=== PATIENT | male | born 1995 | race Caucasian/White ===

== ENCOUNTER 2019-08-08 16:01 | Day surgery (SDC) | payer OTHER ==
[2019-08-08 16:39] LABS: ABS Eosinophils 0.1 10^3/ul (0-0.6); ABS Monocytes 0.9 10^3/ul (0-0.8); ABS Neutrophils 10.5 10^3/ul (1.5-7.7); Eosinophil % 0.6 %; Hematocrit 46 % (42-52); Hemoglobin 16.1 g/dL (14.0-18.0); Lymphocyte % 8.3 %; Mean Corpuscular HGB Conc 35 g/dL (31-36); Mean Corpuscular Hemoglobin 31 pg (27-31); Mean Corpuscular Volume 90 fL (80-94); Mean Platelet Volume 7.9 fL (7.4-10.4); Nucleated Red Blood Cells % 0.1; Platelet Count 189 10^3/uL (150-450); Red Blood Count 5.15 10^6 /uL (4.18-5.48); Red Cell Distribution Width 13 % (10-15); White Blood Count 12.5 10^3/uL (3.5-10.8)
[2019-08-08 16:59] LABS: Albumin 4.9 g/dL (3.2-5.2); BUN/Creatinine Ratio 11.1 (8-20); C Reactive Protein 29.19 mg/L (<8.01); Calcium 9.5 mg/dL (8.6-10.3); EGFR African American 162.3 (>60); EGFR Non-African American 134.1 (>60); Globulin 2.4 g/dL (2-4); Potassium 3.6 mmol/L (3.5-5.0); Total Protein 7.3 g/dL (6.4-8.9)
[2019-08-08] MEDS ORDERED: NS 0.9% 1000 ML** 1,000 ML IV ONE ×2 (17:18→18:05)
--- NOTE | 2019-08-08 17:28 | ED ---
Abdominal Pain/Male - HPI Summary HPI Summary: 23 year old M presenting to [facility] complains of RLQ pain and nausea that started at 199908/07/2019. Was seen at [facility] and referred to the ED to r/o appendicitis. The patient rates the pain 7/10 in severity. Symptoms aggravated by nothing. Symptoms alleviated by nothing. Medications reviewed. Allergies noted. Patient otherwise healthy. No hx abdominal surgeries. - History of Current Complaint Chief Complaint: EDAbdPain Stated Complaint: ABD PAIN PER PT Time Seen by Provider: 08/08/19 17:18 Hx Obtained From: Patient Onset/Duration: Lasting Hours - 199908/07/2019, Still Present Timing: Constant Severity Currently: Moderate Pain Intensity: 7 Pain Scale Used: 0-10 Numeric Location: Discrete At: RLQ Aggravating Factor(s): Nothing Alleviating Factor(s): Nothing Associated Signs And Symptoms: Positive: Nausea - Allergies/Home Medications Allergies/Adverse Reactions: Allergies Allergy/AdvReac Type Severity Reaction Status Date / Time cefaclor [From Ceclor] Allergy Unknown Verified 08/08/19 16:05 Reaction Details cefprozil [From Cefzil] Allergy Unknown Verified 08/08/19 16:05 Reaction Details Home Medications: Home Medications Finasteride TAB* [Proscar TAB*] 5 mg PO DAILY 08/08/19 [History Confirmed ] Tenofovir/Emtricitab 200/300 * [Truvada 200/300 mg*] 1 tab PO DAILY 08/08/19 [ History Confirmed 08/08/19] PMH/Surg Hx/FS Hx/Imm Hx Endocrine/Hematology History: Denies: Hx Diabetes Cardiovascular History: Denies: Hx Hypertension - Surgical History Surgery Procedure, Year, and Place: ACL surgery. tonsilectomy Infectious Disease History: No Infectious Disease History: Denies: Traveled Outside the [place] in Last 30 Days - Family History Known Family History: Positive: Other - CANCER, STROKE Negative: Hypertension, Diabetes - Social History Alcohol Use: Occasionally Hx Substance Use: Yes Substance Use Type: Reports: Marijuana Hx Tobacco Use: No Smoking Status (MU): Never Smoked Tobacco Review of Systems Negative: Fever Positive: Abdominal Pain, Nausea All Other Systems Reviewed And Are Negative: Yes Physical Exam - Summary Physical Exam Summary: Constitutional: Well-developed, Well-nourished, Alert. (-) Distressed Skin: Warm, Dry HENT: Normocephalic; Atraumatic Eyes: Conjunctiva normal Neck: Musculoskeletal ROM normal neck. (-) JVD, (-) Stridor, (-) Tracheal deviation Cardio: Rhythm regular, rate normal, Heart sounds normal; Intact distal pulses; The pedal pulses are 2+ and symmetric. Radial pulses are 2+ and symmetric. (-) Murmur Pulmonary/Chest wall: Effort normal. (-) Respiratory distress, (-) Wheezes, (-) Rales Abd: Soft, focal tenderness in the RLQ, (-) Distension, (-) Guarding, (-) Rebound. The abdomen is non-rigid. Musculoskeletal: (-) Edema Lymph: (-) Cervical adenopathy Neuro: Alert, Oriented x3 Psych: Mood and affect Normal Triage Information Reviewed: Yes Vital Signs On Initial Exam: Initial Vitals Temp Pulse Resp BP Pulse Ox 97.8 F 89 18 147/79 97 08/08/19 16:02 08/08/19 16:02 08/08/19 16:02 08/08/19 16:02 08/08/19 16:02 Vital Signs Reviewed: Yes Procedures - Sedation Patient Received Moderate/Deep Sedation with Procedure: No Diagnostics - Vital Signs Vital Signs Temp Pulse Resp BP Pulse Ox 08/08/19 16:02 97.8 F 89 18 147/79 97 - Laboratory Lab Results: Lab Results 08/08/19 08/08/19 Range/Units 16:31 16:31 WBC 12.5 H (3.5-10.8) 10^3/uL RBC 5.15 (4.18-5.48) 10^6 /uL Hgb 16.1 (14.0-18.0) g/dL Hct 46 (42-52) % MCV 90 (80-94) fL MCH 31 (27-31) pg MCHC 35 (31-36) g/dL RDW 13 (10-15) % Plt Count 189 (150-450) 10^3/uL MPV 7.9 (7.4-10.4) fL Neut % (Auto) 83.7 % Lymph % (Auto) 8.3 % [place] % (Auto) 7.1 % Eos % (Auto) 0.6 % Baso % (Auto) 0.3 % Absolute Neuts (auto) 10.5 H (1.5-7.7) 10^3/ul Absolute Lymphs (auto) 1.0 (1.0-4.8) 10^3/ul Absolute Monos (auto) 0.9 H (0-0.8) 10^3/ul Absolute Eos (auto) 0.1 (0-0.6) 10^3/ul Absolute Basos (auto) 0.0 (0-0.2) 10^3/ul Absolute Nucleated RBC 0.0 10^3/ul Nucleated RBC % 0.1 Sodium 135 (135-145) mmol/L Potassium 3.6 (3.5-5.0) mmol/L Chloride 104 (101-111) mmol/L Carbon Dioxide 25 (22-32) mmol/L Anion Gap 6 (2-11) mmol/L BUN 8 (6-24) mg/dL Creatinine 0.72 (0.67-1.17) mg/dL Est GFR ( Amer) 162.3 (>60) Est GFR (Non-Af Amer) 134.1 (>60) BUN/Creatinine Ratio 11.1 (8-20) Glucose 109 H (70-100) mg/dL Calcium 9.5 (8.6-10.3) mg/dL Total Bilirubin 1.00 (0.2-1.0) mg/dL AST 22 (13-39) U/L ALT 16 (7-52) U/L Alkaline Phosphatase 78 (34-104) U/L C-Reactive Protein 29.19 H (<8.01) mg/L Total Protein 7.3 (6.4-8.9) g/dL Albumin 4.9 (3.2-5.2) g/dL Globulin 2.4 (2-4) g/dL Albumin/Globulin Ratio 2.0 (1-3) Result Diagrams: 08/08/19 16:31 08/08/19 16:31 Lab Statement: Any lab studies that have been ordered have been reviewed, and results considered in the medical decision making process. - CT ABD/PEL CT Interpretation Completed By: Radiologist Summary of CT Findings: The appendix is dilated measuring up to 9 mm diameter, fluid-filled and with. abnormal wall thickening and enhancement and mild fat stranding consistent with. acute appendicitis without signs of perforation. ED physician has reviewed this report. Re-Evaluation - Re-Evaluation First Eval Re-Evaluation Time: 18:03 Comment: [facility] radiologist called to report CT Abd/Pel findings Abdominal Pain Male Course/Dx - Course Course Of Treatment: 23 y/[facility] r/o appendicitis complains of RLQ pain and nausea that started at 199908/07/2019. Patient otherwise healthy. No hx abdominal surgeries. Upon physical exam, the patient has focal tenderness in the RLQ. No distension. The abdomen is non- rigid. . Bloodwork results with no significant abnormalities except for WBC 12.5, absolute neuts 10.5, absolute monos 0.9, glucose 109, CRP 29.19. In the ED course, the patient was given normal saline fluids. CT Abd/Pel shows, per radiologist: The appendix is dilated measuring up to 9 mm diameter, fluid- filled and with abnormal wall thickening and enhancement and mild fat stranding consistent with acute appendicitis without signs of perforation. Spoke with Dr. Richardson from general surgery who agrees to take patient to the OR. - Diagnoses Provider Diagnoses: Acute appendicitis - Provider Notifications Discussed Care Of Patient With: Aime Richardson Time Discussed With Above Provider: 17:30 Instructed by Provider To: Admit As Inpatient Discharge ED - Sign-Out/Discharge Documenting (check all that apply): Patient Departure - Discharge Plan Condition: Stable Disposition: ADMITTED TO [facility] - Billing Disposition and Condition Condition: STABLE Disposition: Admitted to [facility] - Attestation Statements Document Initiated by Krystleibe: Yes Documenting Scribe: Niurka Newman Provider For Whom Scribe is Documenting (Include Credential): Naga Rosario DO Scribe Attestation: Niurka Arnett scribed for Naga Rosario DO on 08/08/19 at 1957. Scribe Documentation Reviewed: Yes Provider Attestation: The documentation as recorded by the Niurka abarca accurately reflects the service I personally performed and the decisions made by , Naga Rosario DO Status of Scribrenata Document: Viewed
[2019-08-08] MEDS ORDERED: Iohexol 300* (CONTRAST) 10 ML SDV IV ONE (17:29)
[2019-08-08] MEDS ORDERED: Piperacillin/Tazobac ADVAN(*) 3.375 GM in NS 0.9% 100 ML* 100 ML IVPB ONE (18:09)
--- NOTE | 2019-08-08 19:30 | HP ---
H&P (Free Text) History and Physical: CC: ABD pain x 1 day HPI: 23 yo M presenting to ED with ABD pain that began as a central pressure last night and has worsened into a RLQ pain. Nausea since last night, no vomiting. Denies loss of appetite, fever, chills, cough, SOB, chest pain, diarrhea, constipation, blood in stool, urinary changes. Last oral intake was a cookie this afternoon. Surgical history: tonsillectomy, ACL and meniscus repair R knee. Denies issue ever with anesthesia, bleeding, or clotting. Social history: Law student. No tobacco use. 1-2 etoh drinks/week. No drug use otherwise. Family history: Noncontributory. Past medical history: Denies. Home Medications Medication Instructions Recorded Confirmed Type Finasteride TAB* [Proscar TAB*] 5 mg PO DAILY 08/08/19 08/08/19 History Tenofovir/Emtricitab 200/300 * 1 tab PO DAILY 08/08/19 08/08/19 History [Truvada 200/300 mg*] Allergies Allergy/AdvReac Type Severity Reaction Status Date / Time cefaclor [From Ceclor] Allergy Unknown Verified 08/08/19 16:05 Reaction Details cefprozil [From Cefzil] Allergy Unknown Verified 08/08/19 16:05 Reaction Details ROS: 12 point ROS negative except as otherwise stated in HPI. PEX: General: Alert, in NAD or discomfort. Integumentary: No rashes, jaundice, lesions, petechia. HEENT: Oropharynx clear. PERRLA. Neck: Trachea midline. No LAD. Heart: RRR, no MRG. Lungs: CTAB, no WRR. ABD: BS present. Soft, nondistended. Tender in RLQ. No rebound or guarding. Extremities: Calves soft and nontender. No edema. Distal pulses intact bilaterally. Laboratory Last Values WBC 12.5 10^3/uL (3.5-10.8) H 08/08/19 16:31 RBC 5.15 10^6 /uL (4.18-5.48) 08/08/19 16:31 Hgb 16.1 g/dL (14.0-18.0) 08/08/19 16:31 Hct 46 % (42-52) 08/08/19 16:31 MCV 90 fL (80-94) 08/08/19 16: MCH 31 pg (27-31) 08/08/19 16: MCHC 35 g/dL (31-36) 08/08/19 16: RDW 13 % (10-15) 08/08/19 16:31 Plt Count 189 10^3/uL (150-450) 08/08/19 16:31 MPV 7.9 fL (7.4-10.4) 08/08/19 16: Neut % (Auto) 83.7 % 08/08/19 16: Lymph % (Auto) 8.3 % 08/08/19 16: [place] % (Auto) 7.1 % 08/08/19 16: Eos % (Auto) 0.6 % 08/08/19 16: Baso % (Auto) 0.3 % 08/08/19 16: Absolute Neuts (auto) 10.5 10^3/ul (1.5-7.7) H 08/08/19 16: Absolute Lymphs (auto) 1.0 10^3/ul (1.0-4.8) 08/08/19 16: Absolute Monos (auto) 0.9 10^3/ul (0-0.8) H 08/08/19 16: Absolute Eos (auto) 0.1 10^3/ul (0-0.6) 08/08/19 16: Absolute Basos (auto) 0.0 10^3/ul (0-0.2) 08/08/19 16: Absolute Nucleated RBC 0.0 10^3/ul 08/08/19 16: Nucleated RBC % 0.1 08/08/19 16:31 Sodium 135 mmol/L (135-145) 08/08/19 16:31 Potassium 3.6 mmol/L (3.5-5.0) 08/08/19 16: Chloride 104 mmol/L (101-111) 08/08/19 16: Carbon Dioxide 25 mmol/L (22-32) 08/08/19 16:31 Anion Gap 6 mmol/L (2-11) 08/08/19 16:31 BUN 8 mg/dL (6-24) 08/08/19 16:31 Creatinine 0.72 mg/dL (0.67-1.17) 08/08/19 16:31 Est GFR ( Amer) 162.3 (>60) 08/08/19 16:31 Est GFR (Non-Af Amer) 134.1 (>60) 08/08/19 16:31 BUN/Creatinine Ratio 11.1 (8-20) 08/08/19 16:31 Glucose 109 mg/dL (70-100) H 08/08/19 16:31 Calcium 9.5 mg/dL (8.6-10.3) 08/08/19 16:31 Total Bilirubin 1.00 mg/dL (0.2-1.0) 08/08/19 16:31 AST 22 U/L (13-39) 08/08/19 16:31 ALT 16 U/L (7-52) 08/08/19 16:31 Alkaline Phosphatase 78 U/L (34-104) 08/08/19 16:31 C-Reactive Protein 29.19 mg/L (<8.01) H 08/08/19 16:31 Total Protein 7.3 g/dL (6.4-8.9) 08/08/19 16:31 Albumin 4.9 g/dL (3.2-5.2) 08/08/19 16:31 Globulin 2.4 g/dL (2-4) 08/08/19 16:31 Albumin/Globulin Ratio 2.0 (1-3) 08/08/19 16:31 CT abd/pelvis: The appendix is dilated measuring up to 9 mm diameter, fluid- filled and with. abnormal wall thickening and enhancement and mild fat stranding consistent with. acute appendicitis without signs of perforation. Personally reviewed with Dr. Richardson. Assessment and plan: 23 yo M with acute appendicitis without perforation or abscess. We will be taking to OR for appendectomy tonight. NPO starting now. Zosyn. Plan discussed with Dr. Richardson.
[2019-08-08] MEDS ORDERED: Bupivacaine 0.5% W/EPI SDV* 10 ML VIAL INJ ONE (19:53)
[2019-08-08] MEDS ORDERED: diPHENhydraMINE IV* 50 MG/ML 1 ml VIAL (BENADRYL) IV PRN (19:55)
[2019-08-08] MEDS ORDERED: fentaNYL* 50 MCG/ML 2 ML VIAL (100 MCG VIAL) IV PRN (19:55)
[2019-08-08] MEDS ORDERED: Buffered Lidocaine 1% SYRIN* 1 ML/SYRINGE INTRADERM ONE (19:55)
[2019-08-08] MEDS ORDERED: Naloxone* 0.4 MG/ML 1 ML VIAL IV PRN (19:55)
[2019-08-08] MEDS ORDERED: Ondansetron INJ* 2 MG/ML VIAL IV PRN (19:55)
[2019-08-08] MEDS ORDERED: DiMENhydriNATE IV* 50 MG/ML VIAL IV PUSH PRN (19:55)
[2019-08-08] MEDS ORDERED: Piperacillin/Tazobactam VIAL*) 3.375 GM VIAL (COMPD & OVERRIDE) IVPB ONE (19:58)
[2019-08-08] MEDS ORDERED: Lactated Ringers 1000 ML Bag* 1,000 ML IV SCH (20:00)
--- NOTE | 2019-08-08 20:00 | PN ---
Progress Note - Progress Note Date of Service: 08/08/19 Note: Patient seen and examined CT and labs reviewed He developed abdominal pain last night, now RLQ Temp Pulse Resp BP Pulse Ox 97.8 F 78 18 131/82 98 08/08/19 19:35 08/08/19 19:35 08/08/19 19:35 08/08/19 19:35 08/08/19 19:35 PEX: Comfortable Tender RLQ with some guarding-no peritoneal irritation Labs noted Impression: Acute appendicitis PLAN: Laparoscopic appendectomy tonight. Procedure discussed with patient in detail, risks of, but not limited to, of bleeding, infection, abscess, open procedure, injury to peritoneal and retroperitoneal structures, blood clots and anesthesia risks all explained. He gives his consent to proceed.
[2019-08-08] MEDS ORDERED: Famotidine IV* 10 MG/ML 2 ML (20 mg) ONE (20:02)
[2019-08-08] MEDS ORDERED: Midazolam* 1 MG/ML 2 ML VIAL (2 MG) ONE (20:11)
[2019-08-08] MEDS ORDERED: fentaNYL* 50 MCG/ML 2 ML VIAL (100 MCG VIAL) ONE (20:11)
[2019-08-08] MEDS ORDERED: Dexamethasone IV* 4 MG/ML 1 ML (4 MG) ONE (20:12)
[2019-08-08] MEDS ORDERED: Rocuronium* 10 MG/ML VIAL ONE (20:12)
[2019-08-08] MEDS ORDERED: Propofol* 10 MG/ML 20 ML BTL ONE (20:12)
[2019-08-08] MEDS ORDERED: Ketorolac INJ* 30 MG/ML 1 ML VIAL ONE (20:12)
[2019-08-08] MEDS ORDERED: Ondansetron INJ* 2 MG/ML VIAL ONE (20:12)
--- NOTE | 2019-08-08 20:16 | OP ---
Operative Report - Blank - Operative Report Date of Operation: 08/08/19 Note: OPERATIVE NOTE Pre-Operative Diagnosis: Acute appendicitis Post-Operative Diagnosis:Acute suppurative appendicitis Procedure:Laparoscopic appendectomy Surgeon: Richard Richardson MD Access Control Specialist:None Anesthesia: Local with MAC General with Dr. Sanchez IVF:1 liter of crystalloid EBL:min Specimen:Appendix Drain: none Wound Class:3 Findings: Acute appendicitis-suppurative, no abscess, no gangrene TO PACU
[2019-08-08 22:52] VITALS: BP 123/56
--- NOTE | 2019-08-09 00:21 | OP ---
DATE OF OPERATION: 08/08/19 - [facility] DATE OF : [birth year] SURGEON: Aime Richardson MD LAMP SHADE MAKER: None. ANESTHESIOLOGIST: Dr. Sanchez. ANESTHESIA: General with local. PRE-OP DIAGNOSIS: Acute appendicitis. POST-OP DIAGNOSIS: Acute suppurative appendicitis. OPERATIVE PROCEDURE: Laparoscopic appendectomy. IV FLUIDS: 1 L of crystalloid. SPECIMENS: Appendix. WOUND CLASSIFICATION: 3. COMPLICATIONS: None. DRAINS: None. FINDINGS: Acute suppurative appendicitis without evidence of perforation or abscess. DESCRIPTION OF PROCEDURE: Written informed consent was obtained, the abdomen was marked with indelible ink and preoperative antibiotics were administered. The patient was taken to the operating room and placed in the supine position. Sequential compression devices and warming blanket were applied. General anesthesia was administered. The abdomen was prepped and draped in the usual sterile fashion. A time-out verification was completed. A small transverse incision was made just above the umbilicus in the midline. The peritoneal cavity was entered under direct vision. A 12 mm blunt port was inserted and the abdomen was insufflated to 15 mmHg. Under direct vision, a 5 mm left lower quadrant abdominal port was placed and a second suprapubic port was placed. That was also 5 mm. Evaluating the lower abdomen showed a small amount of turbid fluid in the pelvis. The terminal ileum and the cecum were unremarkable. The appendix was identified. In the distal half of his peritoneum, there were some peritoneal attachments more laterally, which I did divide to expose the entire base of the appendix at the cecum. The appendix was suppuratively inflamed with some fibrinous exudate and was edematous as well as its mesentery, but no evidence of gangrene or perforation or abscess. The mesoappendix was taken sequentially using the LigaSure from the tip of the appendix down to its base. The base was unremarkable and an Endo ENMA schultz load of a 45-mm stapler was then used to divide the appendix at the base of the cecum. The appendix was brought out through the umbilical incision in the EndoCatch bag. The staple line was evaluated, it was intact. There was no evidence of bleeding. The right lower quadrant and pelvis were irrigated with saline. All ports were then removed under direct vision of the camera. The umbilical fascia was closed with interrupted 0 Vicryl suture. The skin and all 3 incisions were approximated with subcuticular 4-0 Vicryl suture. Steri-Strips were applied. The patient tolerated the procedure well and was taken to the recovery room in stable condition. [id number]/[facility] #: [id number] MEE
== END 2019-08-08 22:30 | disposition home or self-care (01) ==
LOC: ED 16:01 → OR 19:21
PROVIDERS: ATTEND Surgery
DX: K35.80 Unspecified acute appendicitis (principal); R10.31 Right lower quadrant pain; D72.829 Elevated white blood cell count, unspecified; R11.0 Nausea
CPT/HCPCS: 36415; 74177; 80053; 85025; 86140; 88304; 99285; C1776; J1100; J1885; J2250; J2405; J2543; J2704; J3010; Q9967